=== PATIENT | male | born 1960 | race Caucasian/White ===

== ENCOUNTER → 2016-09-08 | Outpatient (CLI) | payer MEDICARE, MEDICAID ==
[~2016-09-08] MED LIST: LEVO100T8 PO; LISI10TA6 PO; NOR5T PO; PANT40TA2 PO; SIMV10TA84 PO; TRAZ50TA2 PO
[2016-09-08 10:56] LABS: Basophils # (auto) 0 uL; Basophils % (auto) 0.5 % (0.0-2.0); Eosinophils # (auto) 0.1 uL; Eosinophils % (auto) 0.9 % (0.0-7.0); Hematocrit 47.8 % (41.0-53.0); Hemoglobin 15.5 g/dL (13.5-17.5); Lymphocytes # (auto) 1.5 uL; Mean Corpuscular Hemoglobin 29.2 pg (28.0-32.0); Mean Corpuscular Hgb Conc. 32.5 g/dL (32.0-36.0); Monocytes # (auto) 0.4 uL; Monocytes % (auto) 5.4 % (0.0-12.0); Neutrophils # (auto) 6.2 uL; Neutrophils % (auto) 75.2 % (37.0-80.0); Platelet Count (auto) 204 10^3/uL (140-450); Red Cell Distribution Width 13.4 % (11.6-16.0); White Blood Cell 8.2 10^3/uL (4.4-10.8)
[2016-09-08 11:25] LABS: Vitamin B12 814 pg/mL (211-911)
[2016-09-08 11:41] LABS: Albumin 4.1 g/dL (3.4-5.0); BUN/Creatinine Ratio 11.3; Bilirubin, Total 0.5 mg/dL (0.2-1.0); Calcium 6.7 mg/dL (8.5-10.1); Potassium 4.1 mmol/L (3.5-5.1); Total Protein 7.9 g/dL (6.4-8.2)
[2016-09-08 12:01] LABS: Temperature: 23.4 C (20.0-25.0)
== END | disposition home or self-care (01) ==
LOC: LAB 10:02
DX: I10 Essential (primary) hypertension (principal); G62.9 Polyneuropathy, unspecified; E83.51 Hypocalcemia; Z12.5 Encounter for screening for malignant neoplasm of prostate
CPT/HCPCS: 36415; 80053; 80061; 82306; 82607; 82746; 83735; 84153; 85025

== ENCOUNTER → 2017-02-10 | Outpatient (CLI) | payer MEDICARE, MEDICAID ==
[~2017-02-10] MED LIST changes: +HYDR-4663 PO; -NOR5T PO
[2017-02-10 15:17] LABS: Basophils # (auto) 0.1 uL; Basophils % (auto) 0.8 % (0.0-2.0); CONDITION Y; Eosinophils # (auto) 0.1 uL; Eosinophils % (auto) 1.2 % (0.0-7.0); Hematocrit 47.5 % (41.0-53.0); Hemoglobin 16.5 g/dL (13.5-17.5); Lymphocytes # (auto) 1.3 uL; Lymphocytes % (auto) 17.9 % (10.0-50.0); Mean Corpuscular Hemoglobin 30.9 pg (28.0-32.0); Mean Corpuscular Hgb Conc. 34.8 g/dL (32.0-36.0); Monocytes # (auto) 0.4 uL; Monocytes % (auto) 5.5 % (0.0-12.0); Neutrophils # (auto) 5.6 uL; Neutrophils % (auto) 74.6 % (37.0-80.0); Platelet Count (auto) 222 10^3/uL (140-450); Red Cell Distribution Width 13.8 % (11.6-16.0); White Blood Cell 7.5 10^3/uL (4.4-10.8)
[2017-02-10 15:44] LABS: Albumin 3.9 g/dL (3.4-5.0); BUN/Creatinine Ratio 11.2; Bilirubin, Total 0.4 mg/dL (0.2-1.0); Calcium 7.2 mg/dL (8.5-10.1); Potassium 3.7 mmol/L (3.5-5.1); Total Protein 7.9 g/dL (6.4-8.2)
== END | disposition home or self-care (01) ==
LOC: LAB 14:27
DX: D64.9 Anemia, unspecified (principal); E55.9 Vitamin D deficiency, unspecified; E21.0 Primary hyperparathyroidism; E03.9 Hypothyroidism, unspecified
CPT/HCPCS: 36415; 80053; 82306; 84439; 84443; 84481; 85025

== ENCOUNTER → 2017-05-04 | Outpatient (CLI) | payer MEDICARE, MEDICAID ==
[2017-05-04 14:36] LABS: Albumin 3.8 g/dL (3.4-5.0); BUN/Creatinine Ratio 13.4; Bilirubin, Total 0.3 mg/dL (0.2-1.0); Calcium 7.2 mg/dL (8.5-10.1); Phosphorus 4.6 mg/dL (2.5-4.90); Potassium 3.8 mmol/L (3.5-5.1); Total Protein 7.7 g/dL (6.4-8.2)
== END | disposition home or self-care (01) ==
LOC: LAB 13:36
DX: E20.0 Idiopathic hypoparathyroidism (principal); E03.9 Hypothyroidism, unspecified; J44.9 Chronic obstructive pulmonary disease, unspecified
CPT/HCPCS: 36415; 80053; 82330; 84100; 84439; 84443

== ENCOUNTER → 2017-05-06 | Outpatient (CLI) | payer MEDICARE ==
[2017-05-06 11:08] LABS: Albumin 3.8 g/dL (3.4-5.0); BUN/Creatinine Ratio 12.8; Bilirubin, Total 0.4 mg/dL (0.2-1.0); Calcium 7.5 mg/dL (8.5-10.1); Potassium 3.7 mmol/L (3.5-5.1); Total Protein 7.8 g/dL (6.4-8.2)
== END | disposition home or self-care (01) ==
LOC: LAB 10:23
PROVIDERS: ATTEND Internal Medicine
DX: I10 Essential (primary) hypertension (principal)
CPT/HCPCS: 36415; 80053

== ENCOUNTER → 2017-07-13 | Outpatient (CLI) | payer MEDICARE, OTHER ==
[~2017-07-13] MED LIST changes: -HYDR-4663 PO; +HYDR-4683 PO
== END | disposition home or self-care (01) ==
LOC: LAB 08:43
PROVIDERS: ATTEND Physician Assistant
DX: L57.0 Actinic keratosis (principal)

== ENCOUNTER → 2018-02-17 | Outpatient (CLI) | payer MEDICARE ==
[2018-02-17 08:12] LABS: Basophils # (auto) 0 uL; Basophils % (auto) 0.4 % (0.0-2.0); Eosinophils # (auto) 0 uL; Eosinophils % (auto) 0.5 % (0.0-7.0); Hematocrit 47.6 % (41.0-53.0); Hemoglobin 15.9 g/dL (13.5-17.5); Lymphocytes # (auto) 1.3 uL; Lymphocytes % (auto) 16.6 % (10.0-50.0); Mean Corpuscular Hemoglobin 30.2 pg (28.0-32.0); Mean Corpuscular Hgb Conc. 33.5 g/dL (32.0-36.0); Mean Corpuscular Volume 90.1 fL (80.0-100.0); Monocytes # (auto) 0.4 uL; Monocytes % (auto) 5.6 % (0.0-12.0); Neutrophils # (auto) 5.9 uL; Neutrophils % (auto) 76.9 % (37.0-80.0); Nucleated Red Blood Cells % 0.1 %; Platelet Count (auto) 167 10^3/uL (140-450); Red Blood Cells 5.28 10^6/uL (4.5-5.90); Red Cell Distribution Width 14.5 % (11.8-14.3); White Blood Cell 7.7 10^3/uL (4.4-10.8)
[2018-02-17 08:54] LABS: Bilirubin, Total 0.6 mg/dL (0.2-1.0); Calcium 7.6 mg/dL (8.5-10.1); Total Protein 7.6 g/dL (6.4-8.2)
== END | disposition home or self-care (01) ==
LOC: LAB 07:43
PROVIDERS: ATTEND Physician Assistant
DX: Z12.5 Encounter for screening for malignant neoplasm of prostate (principal); I12.9 Hypertensive chronic kidney disease with stage 1 through stage 4 chronic kidney disease, or unspecified chronic kidney disease; N18.9 Chronic kidney disease, unspecified; J41.0 Simple chronic bronchitis; E78.5 Hyperlipidemia, unspecified; E03.9 Hypothyroidism, unspecified; R97.20 Elevated prostate specific antigen [PSA]; F41.9 Anxiety disorder, unspecified; Z79.899 Other long term (current) drug therapy; Z85.819 Personal history of malignant neoplasm of unspecified site of lip, oral cavity, and pharynx
CPT/HCPCS: 36415; 80053; 80061; 84153; 84443; 85025

== ENCOUNTER → 2018-06-21 | Outpatient (CLI) | payer MEDICARE ==
[2018-06-21 11:14] LABS: Basophils # (auto) 0 uL; Basophils % (auto) 0.2 % (0.0-2.0); Eosinophils # (auto) 0 uL; Hematocrit 50.6 % (41.0-53.0); Hemoglobin 17.5 g/dL (13.5-17.5); Lymphocytes # (auto) 0.8 uL; Lymphocytes % (auto) 5.8 % (10.0-50.0); Mean Corpuscular Hgb Conc. 34.7 g/dL (32.0-36.0); Mean Corpuscular Volume 89.5 fL (80.0-100.0); Monocytes # (auto) 0.4 uL; Monocytes % (auto) 3.1 % (0.0-12.0); Neutrophils # (auto) 12.3 uL; Neutrophils % (auto) 90.9 % (37.0-80.0); Platelet Count (auto) 216 10^3/uL (140-450); Red Blood Cells 5.65 10^6/uL (4.5-5.90); Red Cell Distribution Width 14.1 % (11.8-14.3); White Blood Cell 13.5 10^3/uL (4.4-10.8)
== END | disposition home or self-care (01) ==
LOC: LAB 10:32
PROVIDERS: ATTEND Nurse Practitioner Family
DX: J44.1 Chronic obstructive pulmonary disease with (acute) exacerbation (principal); J18.9 Pneumonia, unspecified organism
CPT/HCPCS: 36415; 85025

== ENCOUNTER → 2018-08-02 | Outpatient (CLI) | payer MEDICARE ==
[2018-08-02 11:12] LABS: Basophils # (auto) 0 uL; Basophils % (auto) 0.7 % (0.0-2.0); Eosinophils # (auto) 0.1 uL; Eosinophils % (auto) 1.4 % (0.0-7.0); Hematocrit 46.8 % (41.0-53.0); Hemoglobin 16.5 g/dL (13.5-17.5); Lymphocytes # (auto) 1.2 uL; Lymphocytes % (auto) 16.5 % (10.0-50.0); Mean Corpuscular Hemoglobin 31.4 pg (28.0-32.0); Mean Corpuscular Hgb Conc. 35.2 g/dL (32.0-36.0); Mean Corpuscular Volume 89.1 fL (80.0-100.0); Monocytes # (auto) 0.4 uL; Monocytes % (auto) 5.9 % (0.0-12.0); Neutrophils # (auto) 5.4 uL; Neutrophils % (auto) 75.5 % (37.0-80.0); Nucleated Red Blood Cells % 0.1 %; Platelet Count (auto) 174 10^3/uL (140-450); Red Blood Cells 5.25 10^6/uL (4.5-5.90); Red Cell Distribution Width 13.9 % (11.8-14.3); White Blood Cell 7.2 10^3/uL (4.4-10.8)
[2018-08-02 11:14] LABS: Urine Blood Negative /uL (Negative); Urine Specific Gravity 1.012 (1.001-1.035)
[2018-08-02 12:17] LABS: Albumin 3.8 g/dL (3.4-5.0); BUN/Creatinine Ratio 9.8; Bilirubin, Total 0.3 mg/dL (0.2-1.0); Calcium 8.1 mg/dL (8.5-10.1); Total Protein 7.4 g/dL (6.4-8.2)
== END | disposition home or self-care (01) ==
LOC: LAB 10:26
PROVIDERS: ATTEND Physician Assistant
DX: J44.9 Chronic obstructive pulmonary disease, unspecified (principal); E78.5 Hyperlipidemia, unspecified; E03.9 Hypothyroidism, unspecified; N18.2 Chronic kidney disease, stage 2 (mild); R35.1 Nocturia
CPT/HCPCS: 36415; 80053; 80061; 81003; 84153; 84443; 85025

== ENCOUNTER → 2019-08-21 | Outpatient (CLI) | payer MEDICARE, MEDICAID ==
[~2019-08-21] MED LIST changes: -HYDR-4683 PO; +HYDR-4833 PO
[2019-08-21 08:24] LABS: Basophils # (auto) 0.1 uL; Basophils % (auto) 1.1 % (0.0-2.0); Eosinophils # (auto) 0.1 uL; Eosinophils % (auto) 1.6 % (0.0-7.0); Hematocrit 48.7 % (41.0-53.0); Lymphocytes # (auto) 1.6 uL; Lymphocytes % (auto) 17.4 % (10.0-50.0); Mean Corpuscular Hemoglobin 31.2 pg (28.0-32.0); Mean Corpuscular Hgb Conc. 34.9 g/dL (32.0-36.0); Mean Corpuscular Volume 89.3 fL (80.0-100.0); Monocytes # (auto) 0.6 uL; Monocytes % (auto) 6.2 % (0.0-12.0); Neutrophils # (auto) 6.7 uL; Neutrophils % (auto) 73.7 % (37.0-80.0); Platelet Count (auto) 187 10^3/uL (140-450); Red Blood Cells 5.45 10^6/uL (4.5-5.90); White Blood Cell 9.1 10^3/uL (4.4-10.8)
[2019-08-21 08:51] LABS: Calcium 8.3 mg/dL (8.5-10.1); Potassium 4.5 mmol/L (3.5-5.1)
[2019-08-21 08:56] LABS: BUN/Creatinine Ratio 9.7; Bilirubin, Total 0.4 mg/dL (0.2-1.0)
== END | disposition home or self-care (01) ==
LOC: LAB 07:59
PROVIDERS: ATTEND Physician Assistant
DX: Z12.5 Encounter for screening for malignant neoplasm of prostate (principal); J44.9 Chronic obstructive pulmonary disease, unspecified; I12.9 Hypertensive chronic kidney disease with stage 1 through stage 4 chronic kidney disease, or unspecified chronic kidney disease; N18.2 Chronic kidney disease, stage 2 (mild); E03.9 Hypothyroidism, unspecified
CPT/HCPCS: 36415; 80053; 80061; 84153; 84443; 85025

== ENCOUNTER → 2020-10-14 | Outpatient (CLI) | payer MEDICARE, MEDICAID ==
[~2020-10-14] MED LIST changes: +LISI-648 PO; -LISI10TA6 PO
[2020-10-14 09:00] LABS: Basophils # (auto) 0 10 ^3/uL (0-0.2); Basophils % (auto) 0.6 % (0.0-2.0); Eosinophils # (auto) 0.1 10 ^3/uL (0-0.8); Eosinophils % (auto) 1.4 % (0.0-7.0); Hematocrit 48.4 % (41.0-53.0); Lymphocytes # (auto) 1.3 10 ^3/uL (0.4-5.4); Mean Corpuscular Hemoglobin 31.6 pg (28.0-32.0); Mean Corpuscular Volume 90.4 fL (80.0-100.0); Monocytes # (auto) 0.6 10 ^3/uL (0-1.3); Monocytes % (auto) 7.2 % (0.0-12.0); Neutrophils # (auto) 5.6 10 ^3/uL (1.6-8.6); Neutrophils % (auto) 73.8 % (37.0-80.0); Nucleated Red Blood Cells % 0.2 %; Platelet Count (auto) 179 10^3/uL (140-450); Red Blood Cells 5.36 10^6/uL (4.5-5.90); Red Cell Distribution Width 13.4 % (11.8-14.3); White Blood Cell 7.6 10^3/uL (4.4-10.8)
[2020-10-14 09:31] LABS: Albumin 4.2 g/dL (3.4-5.0); Calcium 8.7 mg/dL (8.5-10.1); Potassium 4.5 mmol/L (3.5-5.1)
[2020-10-14 09:37] LABS: BUN/Creatinine Ratio 10.3; Bilirubin, Total 0.7 mg/dL (0.2-1.0); Total Protein 8.1 g/dL (6.4-8.2)
== END | disposition home or self-care (01) ==
LOC: LAB 08:26
PROVIDERS: ATTEND Physician Assistant
DX: I12.9 Hypertensive chronic kidney disease with stage 1 through stage 4 chronic kidney disease, or unspecified chronic kidney disease (principal); N18.30 Chronic kidney disease, stage 3 unspecified; R35.1 Nocturia; J44.9 Chronic obstructive pulmonary disease, unspecified; E03.9 Hypothyroidism, unspecified
CPT/HCPCS: 36415; 80053; 80061; 84153; 84443; 85025

== ENCOUNTER → 2021-10-28 | Outpatient (CLI) | payer OTHER ==
[~2021-10-28] MED LIST changes: -LISI-648 PO; +LISI-716 PO
[2021-10-28 08:01] LABS: Basophils # (auto) 0.1 10 ^3/uL (0-0.2); Eosinophils # (auto) 0.2 10 ^3/uL (0-0.8); Eosinophils % (auto) 2.4 % (0.0-7.0); Hematocrit 49.4 % (41.0-53.0); Hemoglobin 17.1 g/dL (13.5-17.5); Lymphocytes # (auto) 1.4 10 ^3/uL (0.4-5.4); Lymphocytes % (auto) 21.2 % (10.0-50.0); Mean Corpuscular Hemoglobin 30.8 pg (28.0-32.0); Mean Corpuscular Hgb Conc. 34.5 g/dL (32.0-36.0); Mean Corpuscular Volume 89.1 fL (80.0-100.0); Monocytes # (auto) 0.4 10 ^3/uL (0-1.3); Monocytes % (auto) 5.8 % (0.0-12.0); Neutrophils # (auto) 4.6 10 ^3/uL (1.6-8.6); Neutrophils % (auto) 69.6 % (37.0-80.0); Nucleated Red Blood Cells % 0.3 %; Red Blood Cells 5.55 10^6/uL (4.5-5.90); Red Cell Distribution Width 13.7 % (11.8-14.3); White Blood Cell 6.6 10^3/uL (4.4-10.8)
[2021-10-28 08:21] LABS: Potassium 4.8 mmol/L (3.5-5.1)
[2021-10-28 08:27] LABS: BUN/Creatinine Ratio 9.9; Bilirubin, Total 0.6 mg/dL (0.2-1.0); Total Protein 8.1 g/dL (6.4-8.2)
[2021-10-28 09:02] LABS: Free T4 (Free Thyroxine) 1.29 ng/dL (0.89-1.76); Prostate Specific Antigen 1.94 ng/mL (0.0-4.0)
== END | disposition home or self-care (01) ==
LOC: LAB 07:44
PROVIDERS: ATTEND Nurse Practitioner Family
DX: Z00.00 Encounter for general adult medical examination without abnormal findings (principal); N18.2 Chronic kidney disease, stage 2 (mild); J44.9 Chronic obstructive pulmonary disease, unspecified; E78.5 Hyperlipidemia, unspecified; E20.8 Other hypoparathyroidism; I10 Essential (primary) hypertension; E03.9 Hypothyroidism, unspecified
CPT/HCPCS: 36415; 80053; 80061; 83970; 84153; 84439; 84443; 85025

== ENCOUNTER → 2022-09-16 | Outpatient (CLI) | payer OTHER ==
[2022-09-16 08:42] LABS: Basophils # (auto) 0.1 10 ^3/uL (0-0.2); Basophils % (auto) 0.8 % (0.0-2.0); Eosinophils # (auto) 0.2 10 ^3/uL (0-0.8); Eosinophils % (auto) 2.9 % (0.0-7.0); Hematocrit 47.4 % (41.0-53.0); Hemoglobin 17.2 g/dL (13.5-17.5); Lymphocytes # (auto) 1.5 10 ^3/uL (0.4-5.4); Lymphocytes % (auto) 19.9 % (10.0-50.0); Mean Corpuscular Hemoglobin 31.9 pg (28.0-32.0); Mean Corpuscular Hgb Conc. 36.4 g/dL (32.0-36.0); Mean Corpuscular Volume 87.7 fL (80.0-100.0); Monocytes # (auto) 0.4 10 ^3/uL (0-1.3); Monocytes % (auto) 5.6 % (0.0-12.0); Neutrophils # (auto) 5.2 10 ^3/uL (1.6-8.6); Neutrophils % (auto) 70.8 % (37.0-80.0); Nucleated Red Blood Cells % 0.8 %; Red Cell Distribution Width 13.8 % (11.8-14.3); White Blood Cell 7.3 10^3/uL (4.4-10.8)
[2022-09-16 09:50] LABS: Free T4 (Free Thyroxine) 1.28 ng/dL (0.89-1.76); Prostate Specific Antigen 1.43 ng/mL (0.0-4.0)
[2022-09-16 09:59] LABS: Potassium 4.4 mmol/L (3.5-5.1)
[2022-09-16 10:15] LABS: Albumin 4.2 g/dL (3.4-5.0); Bilirubin, Total 0.7 mg/dL (0.2-1.0); Calcium 8.3 mg/dL (8.5-10.1)
== END | disposition home or self-care (01) ==
LOC: LAB 08:17
PROVIDERS: ATTEND Nurse Practitioner Family
DX: I10 Essential (primary) hypertension (principal); E78.5 Hyperlipidemia, unspecified; E03.9 Hypothyroidism, unspecified; R35.1 Nocturia
CPT/HCPCS: 36415; 80053; 80061; 84153; 84439; 84443; 85025

== ENCOUNTER → 2022-10-29 | Outpatient (CLI) | payer MEDICARE, OTHER ==
[2022-10-29 09:46] LABS: Basophils # (auto) 0 10 ^3/uL (0-0.2); Basophils % (auto) 0.4 % (0.0-2.0); Eosinophils # (auto) 0.2 10 ^3/uL (0-0.8); Hematocrit 47.4 % (41.0-53.0); Hemoglobin 16.8 g/dL (13.5-17.5); Lymphocytes # (auto) 1.5 10 ^3/uL (0.4-5.4); Mean Corpuscular Hemoglobin 30.7 pg (28.0-32.0); Mean Corpuscular Hgb Conc. 35.4 g/dL (32.0-36.0); Mean Corpuscular Volume 86.6 fL (80.0-100.0); Monocytes # (auto) 0.6 10 ^3/uL (0-1.3); Monocytes % (auto) 6.8 % (0.0-12.0); Neutrophils # (auto) 6.9 10 ^3/uL (1.6-8.6); Neutrophils % (auto) 74.8 % (37.0-80.0); Nucleated Red Blood Cells % 0.4 %; Red Blood Cells 5.47 10^6/uL (4.5-5.90); Red Cell Distribution Width 13.3 % (11.8-14.3); White Blood Cell 9.2 10^3/uL (4.4-10.8)
[2022-10-29 10:14] LABS: Albumin 3.8 g/dL (3.4-5.0); Calcium 8.2 mg/dL (8.5-10.1); Potassium 4.2 mmol/L (3.5-5.1)
[2022-10-29 10:19] LABS: BUN/Creatinine Ratio 10.5 (10.0-20.0); Bilirubin, Total 0.7 mg/dL (0.2-1.0); Total Protein 7.8 g/dL (6.4-8.2)
== END | disposition home or self-care (01) ==
LOC: LAB 09:26
PROVIDERS: ATTEND Nurse Practitioner Family
DX: I10 Essential (primary) hypertension (principal); E78.5 Hyperlipidemia, unspecified
CPT/HCPCS: 36415; 80053; 80061; 84439; 84443; 85025

== ENCOUNTER 2022-11-24 06:36 | Emergency (ER) | payer OTHER ==
[~2022-11-24] VITALS: Ht 177.8 cm; Wt 83.0 kg
[2022-11-24 06:36] VITALS: BP 148/84
[2022-11-24 08:41] LABS: Basophils # (auto) 0 10 ^3/uL (0-0.2); Basophils % (auto) 0.6 % (0.0-2.0); Eosinophils # (auto) 0.2 10 ^3/uL (0-0.8); Eosinophils % (auto) 2.5 % (0.0-7.0); Hematocrit 43.9 % (41.0-53.0); Hemoglobin 15.4 g/dL (13.5-17.5); Lymphocytes # (auto) 1.3 10 ^3/uL (0.4-5.4); Lymphocytes % (auto) 17.5 % (10.0-50.0); Mean Corpuscular Hemoglobin 29.8 pg (28.0-32.0); Mean Corpuscular Volume 85.2 fL (80.0-100.0); Monocytes # (auto) 0.5 10 ^3/uL (0-1.3); Monocytes % (auto) 6.3 % (0.0-12.0); Neutrophils # (auto) 5.6 10 ^3/uL (1.6-8.6); Neutrophils % (auto) 73.1 % (37.0-80.0); Nucleated Red Blood Cells % 0.2 %; Red Blood Cells 5.16 10^6/uL (4.5-5.90); Red Cell Distribution Width 13.4 % (11.8-14.3); White Blood Cell 7.7 10^3/uL (4.4-10.8)
[2022-11-24 08:53] LABS: Albumin 3.9 g/dL (3.4-5.0); Calcium 8.3 mg/dL (8.5-10.1); Potassium 3.9 mmol/L (3.5-5.1)
[2022-11-24 08:57] LABS: BUN/Creatinine Ratio 12.6 (10.0-20.0); Bilirubin, Total 0.4 mg/dL (0.2-1.0); Total Protein 7.9 g/dL (6.4-8.2)
[2022-11-24] MEDS ORDERED: ACET1CAP14 PO ×4 (09:54→11:16)
[2022-11-24] MEDS ORDERED: ACET160S68 PO (11:49)
== END 2022-11-24 11:46 | disposition home or self-care (01) ==
LOC: ER 06:36
DX: R13.10 Dysphagia, unspecified (principal); J45.909 Unspecified asthma, uncomplicated; I10 Essential (primary) hypertension; F17.210 Nicotine dependence, cigarettes, uncomplicated; Z86.73 Personal history of transient ischemic attack (TIA), and cerebral infarction without residual deficits; Z90.49 Acquired absence of other specified parts of digestive tract; Z98.890 Other specified postprocedural states; Z90.89 Acquired absence of other organs; Z91.040 Latex allergy status; Z79.899 Other long term (current) drug therapy
CPT/HCPCS: 36415; 71045; 80053; 83605; 85025; 87040; 87070; 87880

== ENCOUNTER 2022-12-19 15:51 | Inpatient (IN) | payer OTHER ==
[~2022-12-19] VITALS: Ht 177.8 cm; Wt 78.3 kg
[~2022-12-19 15:51] MED LIST changes: +ACET160S68 PO; -LISI-716 PO; +LISI10TA34 PO; +SIMV10TA20 PO; -SIMV10TA84 PO; +TRAZ-227 PO; -TRAZ50TA2 PO
[2022-12-19] MEDS ORDERED: MORPHINE SULFATE 4 MG/ML SYR/VIAL IV ONE (18:45)
[2022-12-19] MEDS ORDERED: ONDANSETRON HCL 4 MG/2 ML VIAL IV PRN (19:30)
[2022-12-19] MEDS ORDERED: IPRATROPIUM BROM 0.5 MG/2.5ML INH SOL NEB PRN (19:30)
[2022-12-19] MEDS ORDERED: ALBUTEROL SULF 2.5 MG/0.5ML(0.5%) NEB SOLN NEB PRN (19:30)
[2022-12-19] MEDS ORDERED: DOCUSATE SOD 100 MG CAP PO PRN (19:30)
[2022-12-19] MEDS ORDERED: MORPHINE SULFATE INJ 2 MG/ml SYRG IV PRN (19:30)
[2022-12-19 20:00] VITALS: BP 113/74
[2022-12-19] MEDS: SODIUM CHLORIDE 0.9% 1,000 ML IV SCH (20:45)
[2022-12-19] MEDS: NYSTATIN (MOUTH-THROAT) 500,000 UNITS/5 ML SUSP MT SCH (20:57)
[2022-12-19 22:00] VITALS: BP 113/74
[2022-12-19] MEDS: traZODone HCL 50 MG TAB PO SCH (22:00)
[2022-12-20] VITALS (8 sets, daily range): BP systolic 113–142; BP diastolic 74–82
[2022-12-20] MEDS: SODIUM CHLORIDE 0.9% 1,000 ML IV SCH (04:15)
[2022-12-20 05:32] LABS: Basophils # (auto) 0.1 10 ^3/uL (0-0.2); Basophils % (auto) 0.6 % (0.0-2.0); Eosinophils # (auto) 0.3 10 ^3/uL (0-0.8); Eosinophils % (auto) 3.4 % (0.0-7.0); Hematocrit 43.2 % (41.0-53.0); Hemoglobin 15.1 g/dL (13.5-17.5); Lymphocytes # (auto) 0.9 10 ^3/uL (0.4-5.4); Lymphocytes % (auto) 10.2 % (10.0-50.0); Mean Corpuscular Hemoglobin 30.3 pg (28.0-32.0); Mean Corpuscular Hgb Conc. 35.1 g/dL (32.0-36.0); Mean Corpuscular Volume 86.4 fL (80.0-100.0); Monocytes # (auto) 0.6 10 ^3/uL (0-1.3); Monocytes % (auto) 7.1 % (0.0-12.0); Neutrophils # (auto) 7.1 10 ^3/uL (1.6-8.6); Neutrophils % (auto) 78.7 % (37.0-80.0); Nucleated Red Blood Cells % 0.1 %; Red Blood Cells 4.99 10^6/uL (4.5-5.90); Red Cell Distribution Width 13.1 % (11.8-14.3)
[2022-12-20 05:46] LABS: Albumin 3.5 g/dL (3.4-5.0); Calcium 7.8 mg/dL (8.5-10.1); Potassium 4.3 mmol/L (3.5-5.1)
[2022-12-20 05:51] LABS: BUN/Creatinine Ratio 16.2 (10.0-20.0); Bilirubin, Total 0.8 mg/dL (0.2-1.0)
[2022-12-20] MEDS: NYSTATIN (MOUTH-THROAT) 500,000 UNITS/5 ML SUSP MT SCH ×4 (06:00→21:14)
[2022-12-20] MEDS: LEVOTHYROXINE SODIUM 100 MCG TAB PO SCH (06:11)
[2022-12-20] MEDS: LISINOPRIL 10 MG TAB PO SCH (10:00)
[2022-12-20] MEDS ORDERED: LACTULOSE 20Gm/30ML SOLN PO PRN (10:15)
[2022-12-20] MEDS ORDERED: FLEET ENEMA(ADULT) 135 ML PR PRN ×2 (10:15→10:45)
[2022-12-20] MEDS: PANTOPRAZOLE 40 MG/10 ML VIAL INJ IV SCH (10:42)
[2022-12-20] MEDS: D5W/SOD CHL 0.45% 1,000 ML IV SCH ×2 (10:48→21:18)
[2022-12-20] MEDS ORDERED: LORazepam 2MG/ML-1ML VIAL IV ONE (20:45)
[2022-12-20] MEDS: traZODone HCL 50 MG TAB PO SCH (21:15)
[2022-12-20] MEDS: PRAVASTATIN SODIUM 20 MG TAB PO SCH (21:16)
[2022-12-21 05:00] VITALS: BP 141/85
[2022-12-21] MEDS: NYSTATIN (MOUTH-THROAT) 500,000 UNITS/5 ML SUSP MT SCH ×5 (06:14→22:00)
[2022-12-21] MEDS: LEVOTHYROXINE SODIUM 100 MCG TAB PO SCH (06:22)
[2022-12-21 06:43] LABS: Potassium 3.6 mmol/L (3.5-5.1)
[2022-12-21 06:45] LABS: Basophils # (auto) 0 10 ^3/uL (0-0.2); Basophils % (auto) 0.8 % (0.0-2.0); Eosinophils # (auto) 0.2 10 ^3/uL (0-0.8); Eosinophils % (auto) 3.7 % (0.0-7.0); Hematocrit 40.1 % (41.0-53.0); Hemoglobin 14.4 g/dL (13.5-17.5); Lymphocytes # (auto) 1.2 10 ^3/uL (0.4-5.4); Lymphocytes % (auto) 19.2 % (10.0-50.0); Mean Corpuscular Hemoglobin 30.2 pg (28.0-32.0); Mean Corpuscular Hgb Conc. 35.8 g/dL (32.0-36.0); Mean Corpuscular Volume 84.5 fL (80.0-100.0); Monocytes # (auto) 0.4 10 ^3/uL (0-1.3); Monocytes % (auto) 6.8 % (0.0-12.0); Neutrophils # (auto) 4.3 10 ^3/uL (1.6-8.6); Neutrophils % (auto) 69.5 % (37.0-80.0); Nucleated Red Blood Cells % 0.1 %; Red Blood Cells 4.75 10^6/uL (4.5-5.90); Red Cell Distribution Width 12.8 % (11.8-14.3); White Blood Cell 6.2 10^3/uL (4.4-10.8)
[2022-12-21 06:50] LABS: INR 1.17 (0.9-1.15); Partial Thromboplastin Time 29.6 sec (24.6-33.4)
[2022-12-21 06:52] LABS: Albumin 3.2 g/dL (3.4-5.0); BUN/Creatinine Ratio 11.5 (10.0-20.0); Bilirubin, Total 0.8 mg/dL (0.2-1.0); Calcium 6.9 mg/dL (8.5-10.1); Phosphorus 3.5 mg/dL (2.5-4.90); Total Protein 6.7 g/dL (6.4-8.2)
[2022-12-21 08:00] VITALS: BP_SYST 113; BP_SYST 126; BP_DIAS 74; BP_DIAS 83
[2022-12-21] MEDS: LISINOPRIL 10 MG TAB PO SCH (10:00)
[2022-12-21] MEDS: PANTOPRAZOLE 40 MG/10 ML VIAL INJ IV SCH (10:15)
[2022-12-21 11:55] VITALS: BP 138/84
[2022-12-21] MEDS: D5W/SOD CHL 0.45% 1,000 ML IV SCH (14:43)
[2022-12-21 16:00] VITALS: BP 133/77
[2022-12-21 20:00] VITALS: BP 142/82
[2022-12-21 22:00] VITALS: BP 142/82
[2022-12-21] MEDS: PRAVASTATIN SODIUM 20 MG TAB PO SCH (22:00)
[2022-12-21] MEDS: traZODone HCL 50 MG TAB PO SCH (22:00)
[2022-12-22] MEDS: D5W/SOD CHL 0.45% 1,000 ML IV SCH ×2 (02:30→18:08)
[2022-12-22 05:00] VITALS: BP 136/84
[2022-12-22] MEDS: NYSTATIN (MOUTH-THROAT) 500,000 UNITS/5 ML SUSP MT SCH ×3 (06:00→18:00)
[2022-12-22] MEDS: LEVOTHYROXINE SODIUM 100 MCG TAB PO SCH (06:33)
[2022-12-22 08:00] VITALS: BP 130/77
[2022-12-22] MEDS ORDERED: FLUMAZENIL 0.1 MG/ML INJ 10ML MDV IV ONE (09:05)
[2022-12-22] MEDS ORDERED: NALOXONE HCL 0.4 MG/ML VIAL ONE (09:05)
[2022-12-22] MEDS ORDERED: SODIUM CHLORIDE LOCK 10 ML ONE (09:05)
[2022-12-22] MEDS ORDERED: LIDOCAINE VISCOUS 2% 15ML UD ONE (09:06)
[2022-12-22] MEDS: LISINOPRIL 10 MG TAB PO SCH (10:11)
[2022-12-22] MEDS: PANTOPRAZOLE 40 MG/10 ML VIAL INJ IV SCH (10:11)
[2022-12-22] MEDS: diphenhdrAMINE HCL 50 MG/1 ML VL ONE ×2 (10:56→10:58)
[2022-12-22] MEDS: fentaNYL CITRATE 100 MCG/2 ML VL ONE ×3 (10:56→11:04)
[2022-12-22] MEDS: MIDAZOLAM HCL 5 MG/ML-1ML VIAL ONE ×2 (10:56→11:00)
[2022-12-22 12:00] VITALS: BP 131/77
[2022-12-22] MEDS ORDERED: PANT40TA2 PO (15:25)
[2022-12-22] MEDS ORDERED: SUCR1SUS26 PO (15:25)
[2022-12-22 16:00] VITALS: BP 122/79
[2022-12-22 17:45] VITALS: BP 122/79
== END 2022-12-22 18:45 | disposition home or self-care (01) | DRG 392 ==
LOC: EAST 17:50
PROVIDERS: ADMIT Nurse Practitioner Family; ATTEND Internal Medicine
PROC: 0DB68ZX Excision of Stomach, Via Natural or Artificial Opening Endoscopic, Diagnostic (ICD-10-PCS; 2022-12-22)
PROC: 0DB48ZX Excision of Esophagogastric Junction, Via Natural or Artificial Opening Endoscopic, Diagnostic (ICD-10-PCS; 2022-12-22)
PROC: 0DB98ZX Excision of Duodenum, Via Natural or Artificial Opening Endoscopic, Diagnostic (ICD-10-PCS; principal; 2022-12-22 10:50)
DX: R13.12 Dysphagia, oropharyngeal phase (principal); B37.0 Candidal stomatitis; K22.10 Ulcer of esophagus without bleeding; K22.2 Esophageal obstruction; I10 Essential (primary) hypertension; C14.0 Malignant neoplasm of pharynx, unspecified; K44.9 Diaphragmatic hernia without obstruction or gangrene; G47.00 Insomnia, unspecified; E03.9 Hypothyroidism, unspecified; R07.89 Other chest pain; E78.5 Hyperlipidemia, unspecified; J44.9 Chronic obstructive pulmonary disease, unspecified; K29.90 Gastroduodenitis, unspecified, without bleeding; K21.9 Gastro-esophageal reflux disease without esophagitis; F17.200 Nicotine dependence, unspecified, uncomplicated; Z91.041 Radiographic dye allergy status; Z82.49 Family history of ischemic heart disease and other diseases of the circulatory system; Z83.3 Family history of diabetes mellitus; Z80.9 Family history of malignant neoplasm, unspecified
CPT/HCPCS: 36415; 43239; 43450; 70490; 71045; 80053; 80061; 82306; 83036; 84100; 84443; 85025; 85610; 85730; C9113; G0378; J2250

== ENCOUNTER → 2023-03-18 | Outpatient (CLI) | payer OTHER ==
[~2023-03-18] MED LIST changes: +SUCR1SUS26 PO
== END | disposition home or self-care (01) ==
LOC: LAB 14:23
PROVIDERS: ATTEND Internal Medicine
DX: K14.8 Other diseases of tongue (principal)
CPT/HCPCS: 36415; 82565; 84520

== ENCOUNTER 2023-04-21 06:19 | Emergency (ER) | payer OTHER ==
[~2023-04-21] VITALS: Ht 172.7 cm; Wt 65.9 kg
[2023-04-21 07:01] LABS: Basophils # (auto) 0.1 10 ^3/uL (0-0.2); Basophils % (auto) 0.9 % (0.0-2.0); Eosinophils # (auto) 0.2 10 ^3/uL (0-0.8); Eosinophils % (auto) 2.1 % (0.0-7.0); Hematocrit 33.8 % (41.0-53.0); Hemoglobin 11.8 g/dL (13.5-17.5); Lymphocytes # (auto) 0.8 10 ^3/uL (0.4-5.4); Lymphocytes % (auto) 7.9 % (10.0-50.0); Mean Corpuscular Hemoglobin 30.6 pg (28.0-32.0); Mean Corpuscular Hgb Conc. 35.1 g/dL (32.0-36.0); Mean Corpuscular Volume 87.2 fL (80.0-100.0); Monocytes # (auto) 0.5 10 ^3/uL (0-1.3); Monocytes % (auto) 5.7 % (0.0-12.0); Neutrophils % (auto) 83.4 % (37.0-80.0); Red Blood Cells 3.87 10^6/uL (4.5-5.90); White Blood Cell 9.6 10^3/uL (4.4-10.8)
[2023-04-21 07:19] LABS: Alanine Aminotransferase 23 U/L (7-40); Albumin 4.1 g/dL (3.2-4.8); Alkaline Phosphatase 99 U/L (46-116); Anion Gap 4 (5-15); Aspartate Aminotransferase 18 U/L (13-40); BUN/Creatinine Ratio 17.2 (10.0-20.0); Blood Urea Nitrogen 15 mg/dL (9-23); Calcium 7.6 mg/dL (8.7-10.4); Carbon Dioxide 31 mmol/L (20-30); Chloride 95 mmol/L (98-107); Glucose 111 mg/dL (74-106); Potassium 4.1 mmol/L (3.5-5.1); Sodium 130 mmol/L (136-145)
[2023-04-21 07:20] LABS: Bilirubin, Total 0.7 mg/dL (0.2-1.0)
[2023-04-21 08:00] VITALS: PULSE 80; RESP 14; O2SAT 94
[2023-04-21] MEDS ORDERED: OCTREOTIDE ACETATE 100 MCG in SODIUM CHL 0.9% 50 ML IV ONE (08:00)
[2023-04-21] MEDS ORDERED: OCTREOTIDE ACETATE 500 MCG in SODIUM CHL 0.9% 99 ML IV SCH (08:00)
[2023-04-21] MEDS ORDERED: PANTOPRAZOLE 40mg/50ML NS AE 50 ML IV ONE (08:00)
[2023-04-21] MEDS ORDERED: PANTOPRAZOLE 80 MG in SODIUM CHL 0.9% 100 ML IV ONE (08:00)
[2023-04-21 08:04] LABS: INR 1.23 (0.9-1.15); Prothrombin Time 12.7 sec (9.3-11.8)
[2023-04-21] MEDS ORDERED: MORPHINE SULFATE INJ 2 MG/ml SYRG IV ONE (09:30)
[2023-04-21 12:05] LABS: Urine Bacteria NONE SEEN /hpf (None Seen); Urine Blood Negative /uL (Negative); Urine Clarity Clear (Clear); Urine Color Yellow (Yellow); Urine Protein, UAD TRACE (Negative); Urine Specific Gravity 1.021 (1.001-1.035); Urine WBC 1 /hpf (0 - 3); Urine pH 7.5 (5.0-8.0)
[2023-04-21] MEDS ORDERED: hydrOXYzine 25 MG TAB or CAP PO ONE (13:45)
[2023-04-21 13:55] VITALS: BP 94/67; PULSE 88; RESP 16; TEMP 98; O2SAT 93
== END 2023-04-21 14:25 | disposition short-term general hospital (02) ==
LOC: ER 06:19 → EDBD 06:19 → ER 14:25
DX: D64.9 Anemia, unspecified (principal); I10 Essential (primary) hypertension; J45.909 Unspecified asthma, uncomplicated; Z90.49 Acquired absence of other specified parts of digestive tract; Z90.89 Acquired absence of other organs; Z91.041 Radiographic dye allergy status
CPT/HCPCS: 36415; 71045; 80053; 81001; 85025; 85610; 86850; 86900; 86901; 86920; 96365; 96366; 96368; 96375; 99291; C9113; J2270

== ENCOUNTER → 2023-06-04 | Outpatient (CLI) | payer OTHER ==
[2023-06-04 10:42] LABS: Basophils # (auto) 0 10 ^3/uL (0-0.2); Basophils % (auto) 0.7 % (0.0-2.0); Eosinophils # (auto) 0.1 10 ^3/uL (0-0.8); Eosinophils % (auto) 0.9 % (0.0-7.0); Hematocrit 36.1 % (41.0-53.0); Hemoglobin 11.9 g/dL (13.5-17.5); Lymphocytes # (auto) 0.8 10 ^3/uL (0.4-5.4); Lymphocytes % (auto) 11.2 % (10.0-50.0); Mean Corpuscular Hemoglobin 27.8 pg (28.0-32.0); Mean Corpuscular Hgb Conc. 32.9 g/dL (32.0-36.0); Mean Corpuscular Volume 84.5 fL (80.0-100.0); Monocytes # (auto) 0.6 10 ^3/uL (0-1.3); Neutrophils # (auto) 5.3 10 ^3/uL (1.6-8.6); Neutrophils % (auto) 78.2 % (37.0-80.0); Nucleated Red Blood Cells % 0.1 %; Red Blood Cells 4.27 10^6/uL (4.5-5.90); Red Cell Distribution Width 14.2 % (11.8-14.3); White Blood Cell 6.8 10^3/uL (4.4-10.8)
[2023-06-04 11:32] LABS: Alanine Aminotransferase 15 U/L (7-40); Albumin 4.5 g/dL (3.2-4.8); Alkaline Phosphatase 104 U/L (46-116); Anion Gap 6 (5-15); Aspartate Aminotransferase 19 U/L (13-40); Blood Urea Nitrogen 13 mg/dL (9-23); Calcium 8.3 mg/dL (8.5-10.1); Carbon Dioxide 33 mmol/L (20-30); Chloride 98 mmol/L (98-107); Glucose 74 mg/dL (74-106); Potassium 4.3 mmol/L (3.5-5.1); Sodium 137 mmol/L (136-145)
[2023-06-04 11:33] LABS: Bilirubin, Total 0.5 mg/dL (0.2-1.0); Total Protein 7.6 g/dL (5.7-8.2)
== END | disposition home or self-care (01) ==
LOC: LAB 10:18
PROVIDERS: ATTEND Internal Medicine
DX: C02.8 Malignant neoplasm of overlapping sites of tongue (principal); Z88.8 Allergy status to other drugs, medicaments and biological substances
CPT/HCPCS: 36415; 80053; 83615; 85025

== ENCOUNTER → 2023-06-10 | Outpatient (CLI) | payer OTHER ==
[2023-06-10 10:08] LABS: Basophils # (auto) 0 10 ^3/uL (0-0.2); Basophils % (auto) 0.7 % (0.0-2.0); Eosinophils # (auto) 0 10 ^3/uL (0-0.8); Eosinophils % (auto) 0.5 % (0.0-7.0); Lymphocytes # (auto) 0.6 10 ^3/uL (0.4-5.4); Mean Corpuscular Hemoglobin 27.8 pg (28.0-32.0); Mean Corpuscular Hgb Conc. 33.4 g/dL (32.0-36.0); Mean Corpuscular Volume 83.3 fL (80.0-100.0); Monocytes # (auto) 0.5 10 ^3/uL (0-1.3); Monocytes % (auto) 8.4 % (0.0-12.0); Neutrophils # (auto) 5.1 10 ^3/uL (1.6-8.6); Neutrophils % (auto) 80.4 % (37.0-80.0); Red Blood Cells 4.32 10^6/uL (4.5-5.90); Red Cell Distribution Width 14.2 % (11.8-14.3); White Blood Cell 6.4 10^3/uL (4.4-10.8)
[2023-06-10 10:28] LABS: Urine Bacteria FEW /hpf (None Seen); Urine Blood Negative /uL (Negative); Urine Clarity Clear (Clear); Urine Color Yellow (Yellow); Urine Mucus FEW (None Seen); Urine Protein, UAD TRACE (Negative); Urine Specific Gravity 1.021 (1.001-1.035); Urine WBC <1 /hpf (0 - 3)
[2023-06-10 10:38] LABS: INR 1.18 (0.9-1.15); Partial Thromboplastin Time 30.3 SEC (24.5-34.5); Prothrombin Time 12.3 sec (9.3-11.8)
[2023-06-10 11:36] LABS: Alanine Aminotransferase 25 U/L (7-40); Albumin 4.5 g/dL (3.2-4.8); Alkaline Phosphatase 116 U/L (46-116); Anion Gap 6 (5-15); Aspartate Aminotransferase 24 U/L (13-40); Bilirubin, Total 0.5 mg/dL (0.2-1.0); Blood Urea Nitrogen 16 mg/dL (9-23); Calcium 8.1 mg/dL (8.5-10.1); Carbon Dioxide 33 mmol/L (20-30); Chloride 97 mmol/L (98-107); Glucose 101 mg/dL (74-106); Potassium 4.2 mmol/L (3.5-5.1); Sodium 136 mmol/L (136-145); Total Protein 7.5 g/dL (5.7-8.2)
== END | disposition home or self-care (01) ==
LOC: LAB 09:51
PROVIDERS: ATTEND Internal Medicine
DX: C02.9 Malignant neoplasm of tongue, unspecified (principal)
CPT/HCPCS: 36415; 80053; 81001; 85025; 85610; 85730

== ENCOUNTER 2023-06-14 07:05 | Day surgery (SDC) | payer OTHER ==
[2023-06-14] MEDS ORDERED: LIDOCAINE 2%HCL (LOCAL ANESTH.) INJ 20ML MDV ONE (08:45)
[2023-06-14] MEDS ORDERED: fentaNYL CITRATE 100 MCG/2 ML VL ONE (09:10)
[2023-06-14] MEDS ORDERED: MIDAZOLAM HCL 2MG/2ML 2ml VIAL (1mg/ml) ONE (09:10)
[2023-06-14] MEDS ORDERED: ceFAZolin 1GM/50ML 50 ML IV ONE (09:43)
[2023-06-14] MEDS ORDERED: LIDOCAINE W/ EPINEPHRINE 2% INJ 20ML VIAL ONE (09:58)
[2023-06-14] MEDS ORDERED: HEPARIN SODIUM (PORCINE) 5000 UNITS/ML 1ML VIAL ONE (10:18)
[2023-06-14 10:41] VITALS: BP 151/71; PULSE 66; RESP 12; O2SAT 94
[2023-06-14 10:52] VITALS: BP 149/80; PULSE 67; RESP 12; O2SAT 96
[2023-06-14 11:07] VITALS: BP 151/81; PULSE 67; RESP 12; O2SAT 96
[2023-06-14 11:22] VITALS: BP 148/79; PULSE 63; RESP 12; O2SAT 96
[2023-06-14 11:37] VITALS: BP 150/80; PULSE 65; RESP 12; O2SAT 95
== END 2023-06-14 12:00 | disposition home or self-care (01) ==
LOC: CATH 07:05
PROVIDERS: ATTEND Internal Medicine
DX: C02.9 Malignant neoplasm of tongue, unspecified (principal)
CPT/HCPCS: 36561; 76937; C1769; C1788; C1894; J0690; J1644; J2250; J3010; J7040; 99152

== ENCOUNTER → 2023-06-28 | Outpatient (CLI) | payer OTHER ==
[2023-06-28 16:18] LABS: Basophils # (auto) 0 10 ^3/uL (0-0.2); Eosinophils # (auto) 0 10 ^3/uL (0-0.8); Monocytes # (auto) 0.6 10 ^3/uL (0-1.3); Monocytes % (auto) 10.5 % (0.0-12.0); Red Cell Distribution Width 14.7 % (11.8-14.3)
[2023-06-28 16:20] LABS: Basophils % (auto) 0.7 % (0.0-2.0); Eosinophils % (auto) 0.5 % (0.0-7.0); Hemoglobin 11.5 g/dL (13.5-17.5); Lymphocytes % (auto) 16.4 % (10.0-50.0); Mean Corpuscular Hemoglobin 26.6 pg (28.0-32.0); Mean Corpuscular Hgb Conc. 32.9 g/dL (32.0-36.0); Mean Corpuscular Volume 80.7 fL (80.0-100.0); Neutrophils # (auto) 4.4 10 ^3/uL (1.6-8.6); Neutrophils % (auto) 71.9 % (37.0-80.0); Red Blood Cells 4.34 10^6/uL (4.5-5.90); White Blood Cell 6.2 10^3/uL (4.4-10.8)
[2023-06-28 17:45] LABS: Alanine Aminotransferase 25 U/L (7-40); Albumin 3.9 g/dL (3.2-4.8); Alkaline Phosphatase 100 U/L (46-116); Anion Gap 5 (5-15); Aspartate Aminotransferase 25 U/L (13-40); BUN/Creatinine Ratio 22.1 (10.0-20.0); Blood Urea Nitrogen 17 mg/dL (9-23); Calcium 7.3 mg/dL (8.7-10.4); Carbon Dioxide 34 mmol/L (20-30); Chloride 95 mmol/L (98-107); Glucose 90 mg/dL (74-106); Magnesium 1.8 mg/dL (1.6-2.6); Potassium 4.3 mmol/L (3.5-5.1); Sodium 134 mmol/L (136-145)
[2023-06-28 17:46] LABS: Bilirubin, Total 0.4 mg/dL (0.2-1.0); Total Protein 6.5 g/dL (5.7-8.2)
== END | disposition home or self-care (01) ==
LOC: LAB 16:01
PROVIDERS: ATTEND Internal Medicine
DX: C02.8 Malignant neoplasm of overlapping sites of tongue (principal); Z88.8 Allergy status to other drugs, medicaments and biological substances
CPT/HCPCS: 36415; 80053; 83615; 83735; 85025